=== PATIENT | female | born 1970 | race Caucasian/White ===

== ENCOUNTER 2024-11-15 18:04 | Outpatient (REF) | payer OTHER, SELFPAY ==
--- NOTE | 2024-11-15 14:00 | PAPFT_PTH ---
PATIENT: Ami Sanchez LOC: [facility] U#:[id number] AGE/SX: 54/F ROOM: RE11/15/[address]: Leti Avina MD : 1970 BED: DIS: 11/15/2024 SPEC #: [id number] RECD: 11/15/24 18:08 STATUS: TAYA REQ #: [id number] JAE: 11/15/24 14:[address]: Leti Avina DEPT: [facility] [place] Cytology RECD BY: Gala Nuñez ENTERED: 11/15/24 18:08 SP TYPE: PAPFT OT DR: Unknown,Unknown Tissues: 1 - CX/ENDOCX FOR PAP SMEARS Procedures: PAP THIN PREP/[facility] Screening HPV DNA PROBE Comments: [id number] (HPV 16 & 18/45)
== END 2024-11-15 18:05 | disposition home or self-care (01) ==
LOC: LBN 18:04
PROVIDERS: Visit Provider Obstetrics & Gynecology
DX: Z12.4 Encounter for screening for malignant neoplasm of cervix (principal); Z01.419 Encounter for gynecological examination (general) (routine) without abnormal findings
CPT/HCPCS: 88142; 87624